=== PATIENT | female | born 1965 | race Asian ===

== ENCOUNTER → 2021-08-20 08:38 | Outpatient (CLI) | payer OTHER, SELFPAY ==
--- NOTE | 2021-08-20 | DI.US.S_ITS ---
LIMITED ULTRASOUND OF LEFT BREAST AND AXILLA: 08/20/2021 CLINICAL: Patient returns today to evaluate an asymmetry in the left breast. Comparison is made to exams dated: 03/08/2021 ultrasound, 03/08/2021 mammogram, 02/11/2021 mammogram, and 02/15/2020 mammogram - [facility]. Color flow ultrasound of the left breast 7 o'clock, and axilla regions was performed. Kaiser scale images of the real-time examination were reviewed. There is a 1.1 cm x 0.5 cm x 1.2 cm wider than tall oval mass with a circumscribed margin in the left breast at 7 o'clock anterior depth 7 cm from the nipple. This oval mass is hyperechoic with no posterior acoustic shadowing or enhancement. This abnormality is not significantly changed. Color flow imaging demonstrates that there is no vascularity present. No significant abnormalities were seen sonographically in the left axilla. IMPRESSION: PROBABLY BENIGN The 1.1 cm x 0.5 cm x 1.2 cm wider than tall oval mass in the left breast likely represents a lipoma and is probably benign. A follow-up mammogram and an ultrasound in 6 months is recommended to demonstrate stability. This exam was interpreted at Station ID: [id number]. Electronically Signed By: Steve briggs/kevin:08/20/2021 09:06:54 letter sent: Followup Recommended Ultrasound BI-RADS: 3 Probably benign
== END ==
PROVIDERS: PCP Physician Assistant Medical; Referring Provider Physician Assistant Medical; Visit Provider Physician Assistant Medical
DX: R92.8 Other abnormal and inconclusive findings on diagnostic imaging of breast (principal); N63.24 Unspecified lump in the left breast, lower inner quadrant
CPT/HCPCS: 76642

== ENCOUNTER → 2024-09-27 09:11 | Outpatient (CLI) | payer OTHER, SELFPAY ==
--- NOTE | 2024-09-27 17:01 | DI.NM.S_ITS ---
DATE OF SERVICE: 09/27/2024 INTRAVENOUS LEXISCAN PERFUSION STUDY INDICATIONS: Chest pain with history of paroxysmal AFib. RADIOPHARMACEUTICAL: 25.4 millicurie Technetium-99m Myoview IV was injected at stress and 12.7 millicuries technetium-99m Myoview IV was injected at rest. CARDIAC STRESS: The patient underwent exercise perfusion study under the supervision of an attending staff. She walked on Jasson protocol for 6 minutes and 35 seconds, achieved maximum heart rate of 157, which was 99% of target heart rate. Resting blood pressure 130/80 and peak blood pressure 200/81 mmHg, seven METS of workload, LISA positive 1%. The patient did not have chest pain. [place] fatigue and shortness of breath. Baseline rhythm sinus. During stress, no convincing ischemic changes seen. Some isolated PVCs without any ventricular tachycardia. RAW DATA: Breast shadow seen. GATED STUDY: Resting LV ejection fraction 76 and stress LV ejection fraction 95%. Resting end-diastolic volume 76 mL. No wall motion abnormalities. Normal TID ratio 0.46. Normal lung heart ratio 0.38. MYOCARDIAL PERFUSION SCAN: Stress supine, resting supine and stress prone images were compared to each other. Stress supine and resting supine images revealed small size, mildly decreased perfusion of distal anterior wall which got completely resolved during stress prone images suggestive of breast tissue attenuation artifact. No convincing ischemia or infarction pattern seen. CONCLUSION: This is a normal myocardial perfusion study with evidence of breast tissue attenuation artifact, which got completely resolved during stress prone images. Mildly diminished exercise tolerance. Normal hemodynamic response. No ischemic EKG changes. Intermittent PVCs during stress without any ventricular tachycardia. No chest pain. Had fatigue and shortness of breath. Preserved LV function. Overall, low-risk exercise myocardial perfusion scan. Kathleen Ledesma - DENTAL INSTRUMENT MAKER/fn/FOOD QUALITY TESTER doc#: [id number]/job#: [id number] dd: 09/27/2024 16:45:00 dt: 09/27/2024 16:51:00 DICTATING MD/COPIES TO: Torri Funk MD COPIES MNE: FAYE;
== END ==
LOC: NUCM 09:12
PROVIDERS: PCP Physician Assistant Medical; Referring Provider Physician Assistant Medical; Visit Provider Physician Assistant Medical
DX: R07.89 Other chest pain (principal)
CPT/HCPCS: 78452; 93017; A9502